=== PATIENT | female | born 1975 | race Caucasian/White ===

== ENCOUNTER 2016-05-21 08:47 | Emergency (ER) | payer OTHER ==
[~2016-05-21] VITALS: Ht 154.9 cm; Wt 64.0 kg
[~2016-05-21 08:47] MED LIST: NITR-5 PO; ONDA4TAB7 SL; PHEN-876 PO
[2016-05-21 08:49] VITALS: TEMP 36.9; Ht 154.9 cm; Wt 64.0 kg
[2016-05-21 09:28] LABS: BASO % 0.2 %; BASO ABS # 0.01 K/uL (0-0.2); COMPLETE YES; EOS % 1.1 %; HEMATOCRIT 35.4 % (37-47); IG% 0.2 %; LYMPH % 24.5 %; LYMPH ABS # 1.32 K/uL (1.2-3.4); MEAN CORPUSCULAR HEMOGLOBIN 25.9 pg (25-34); MEAN CORPUSCULAR HGB CONC 32.8 g/dl (32-36); MEAN PLATELET VOLUME 9.8 fL (7.4-10.4); MONO % 8.7 %; NEUT % 65.3 %; PLATELET COUNT 256 K/uL (130-400); RED BLOOD COUNT 4.48 M/uL (4.2-5.4); WHITE BLOOD COUNT 5.39 K/uL (4.8-10.8)
--- NOTE | 2016-05-21 09:35 | EMERGENCY ROOM VISIT NOTE ---
History Report prepared by Kervinibranjeet: Tank Bartlett Under the Supervision of: Dr. Vimal Adam M.D. First contact with patient: 08:57 Chief Complaint: BELLS PALSY SYMPTOMS Stated Complaint: FACIAL TINGLING/DROOPING, HEADACHE History of Present Illness The patient is a 40 year old female who presents to the Emergency Room with complaints of a resolved right-sided facial droop that she noticed this morning. The patient noticed the facial droop when she smiled. The patient has also felt numbness and tingling of her face and lips. The patient has felt tired and weak for the past two weeks. Two weeks ago, she had an episode where she laid down in her bathroom for an extended period of time because she was feeling so ill. She also had diarrhea and tingling of her extremities at that time. The patient intermittently experiences chest discomfort and rapid breathing. She denies feeling anxious. The patient denies any fevers, chills, urinary symptoms, or pain. The patient has a history of hypothyroidism. Her thyroid medication dose has not been changed recently. She had her thyroid levels checked in March, which were normal. The patient has a scheduled uterine ablation for next week. She experiences heavy menstrual bleeding which is causing her to be anemic. Her hemoglobin was 10.1 one week ago. Source of History: patient Onset: this morning Position: other (face, right side) Quality: other (facial droop) Timing: resolved Associated Symptoms: + diarrhea, + fatigue, + numbness, + weakness, No chills, No fevers, No urinary symptoms Review of Systems All systems have been listed, reviewed, and are negative other than those previously mentioned. Please see Additional Medical History Sheet. Past Medical & Surgical Medical Problems: (1) Asthma (2) Hypothyroidism Surgical Problems: (1) S/P tubal ligation Family History Cancer Diabetes mellitus Heart disease Social History Smoking Status: Never Smoker Occupation Status: employed Current/Historical Medications Scheduled Levothyroxine Sodium (Levothyroxine Sodium), 1 TAB PO DAILY Loratadine (Claritin), 10 MG PO DAILY Allergies Coded Allergies: Penicillins (Unverified Allergy, Mild, HIVES, 07/31/13) Amoxicillin (Unverified Allergy, Unknown, unknown, 05/21/16) Sulfamethoxazole w/Trimethoprim (Unverified Allergy, Unknown, unknown, 04/25) Uncoded Allergies: MILK LACTOSE INTOLERANT (Allergy, Unknown, 06/22/02) SEASONAL ALLERGIES, ADHESIVE TAPE (Allergy, Unknown, 06/22/02) Physical Exam Vital Signs Date Time Temp Pulse Resp B/P Pulse Ox O2 Delivery O2 Flow Rate FiO2 05/21/16 10:25 54 18 97/58 96 Room Air 05/21/16 08:49 36.9 70 18 127/83 100 Room Air Physical Exam GENERAL: Patient awake, alert, somewhat anxious, not currently hyperventilating , skin is slightly pale. Patient follows commands. Patient does not appear toxic. Patient is adequately hydrated and well-nourished. SKIN: No erythema, pallor, cyanosis or rash HEENT: Normal head, pupils equal, reactive to light and accommodation. Ears tube scars bilaterally. Oral cavity and posterior pharynx appear normal. Neck : Without adenopathy, no neck vein distention, carotids are strong and equal. Thyroid is not enlarged. LUNGS: Clear to auscultation. No wheezes, no rales, no rhonchi. HEART: No murmurs. No gallops. No rubs ABDOMEN: No masses, no rebound, no hepatomegaly or splenomegaly. EXTREMITIES: No signs of trauma. No pedal or pretibial edema. No calf or thigh tenderness. NEUROLOGIC: Cranial nerves II-XII within normal limits. No gross motor sensory function deficits. The patient has no facial dissymmetry. Medical Decision & Procedures ER Provider Diagnostic Interpretation: X ray results are stated below per my interpretation and the radiologist's interpretation. CHEST 2 VIEWS ROUTINE CLINICAL HISTORY: Weakness. COMPARISON STUDY: No previous studies for comparison. FINDINGS: Lung volumes are normal. Lungs are clear. There is no pneumothorax or pleural effusion. Cardiac size is normal. Mediastinal contours are normal. There is no evidence of pulmonary edema. IMPRESSION: No acute cardiopulmonary findings. Electronically signed by: Doroteo Kelly M.D. 05/21/2016 10:10 AM Dictated Date/Time: 05/21/2016 10:10 AM Laboratory Results 05/21/16 09:15 Red Blood Count 4.48, Mean Corpuscular Volume 79.0, Mean Corpuscular Hemoglobin 25.9, Mean Corpuscular Hemoglobin Concent 32.8, Mean Platelet Volume 9.8, Neutrophils (%) (Auto) 65.3, Lymphocytes (%) (Auto) 24.5, Monocytes (%) (Auto) 8.7, Eosinophils (%) (Auto) 1.1, Basophils (%) (Auto) 0.2, Neutrophils # (Auto) 3.52, Lymphocytes # (Auto) 1.32, Monocytes # (Auto) 0.47, Eosinophils # (Auto) 0.06, Basophils # (Auto) 0.01 05/21/16 09:15 Test 05/21/16 09:15 05/21/16 09:20 White Blood Count 5.39 K/uL (4.8-10.8) Red Blood Count 4.48 M/uL (4.2-5.4) Hemoglobin 11.6 g/dL (12.0-16.0) Hematocrit 35.4 % (37-47) Mean Corpuscular Volume 79.0 fL (80-100) Mean Corpuscular Hemoglobin 25.9 pg (25-34) Mean Corpuscular Hemoglobin Concent 32.8 g/dl (32-36) Platelet Count 256 K/uL (130-400) Mean Platelet Volume 9.8 fL (7.4-10.4) Neutrophils (%) (Auto) 65.3 % Lymphocytes (%) (Auto) 24.5 % Monocytes (%) (Auto) 8.7 % Eosinophils (%) (Auto) 1.1 % Basophils (%) (Auto) 0.2 % Neutrophils # (Auto) 3.52 K/uL (1.4-6.5) Lymphocytes # (Auto) 1.32 K/uL (1.2-3.4) Monocytes # (Auto) 0.47 K/uL (0.11-0.59) Eosinophils # (Auto) 0.06 K/uL (0-0.5) Basophils # (Auto) 0.01 K/uL (0-0.2) RDW Standard Deviation 40.9 fL (36.4-46.3) RDW Coefficient of Variation 14.2 % (11.5-14.5) Immature Granulocyte % (Auto) 0.2 % Immature Granulocyte # (Auto) 0.01 K/uL (0.00-0.02) Anion Gap 9.0 mmol/L (3-11) Est Creatinine Clear Calc Drug Dose 86.0 ml/min Estimated GFR () 115.3 Estimated GFR (Non- 99.5 BUN/Creatinine Ratio 14.4 (10-20) Calcium Level 8.6 mg/dl (8.5-10.1) Total Bilirubin 0.4 mg/dl (0.2-1) Aspartate Amino Transf (AST/SGOT) 17 U/L (15-37) Alanine Aminotransferase (ALT/SGPT) 25 U/L (12-78) Alkaline Phosphatase 50 U/L (45-117) Total Protein 7.0 gm/dl (6.4-8.2) Albumin 3.8 gm/dl (3.4-5.0) Globulin 3.2 gm/dl (2.5-4.0) Albumin/Globulin Ratio 1.2 (0.9-2) Thyroid Stimulating Hormone (TSH) 2.470 uIu/ml (0.300-4.500) Urine Color YELLOW Urine Appearance CLEAR (CLEAR) Urine pH 6.0 (4.5-7.5) Urine Specific [place] 1.003 (1.000-1.030) Urine Protein NEG (NEG) Urine Glucose (UA) NEG (NEG) Urine Ketones NEG (NEG) Urine Occult Blood NEG (NEG) Urine Nitrite NEG (NEG) Urine Bilirubin NEG (NEG) Urine Urobilinogen NEG (NEG) Urine Leukocyte Esterase TRACE (NEG) Urine WBC (Auto) 1-5 /hpf (0-5) Urine RBC (Auto) 0-4 /hpf (0-4) Urine Hyaline Casts (Auto) 1-5 /lpf (0-5) Urine Epithelial Cells (Auto) 10-20 /lpf (0-5) Urine Bacteria (Auto) NEG (NEG) Urine Test NEG (NEG) Laboratory results as stated above per my review. ECG Indication: weakness Rate (beats per minute): 56 Rhythm: sinus bradycardia Findings: no acute ischemic change, no ectopy ED Course 0857: Past medical records reviewed. The patient was evaluated in room B11b. A complete history and physical examination was performed. 1008: Updated the patient. Talked with her about the test results. 1030: Upon reevaluation, the patient appeared to have improvement of her symptoms. I discussed today's findings with her. She verbalized agreement of the treatment plan. She was discharged home. Medical Decision I considered multiple diagnoses, including Gomez's palsy, TIA, CVA, hyperventilation, anxiety, hyperthyroidism, metabolic disorder. Multiple labs, EKG and imaging were obtained. Please see above. Clinically the patient does not have Gomez's palsy or a TIA/CVA. I find no neurologic deficits. The patient describes tingling in her extremities. She denies anxiety and hyperventilation but most likely this is the cause of her symptoms. I discussed this with her and hopefully reassured her. In the meantime, I believe that she is safe to return home. She is scheduled to have a uterine ablation within the next 10 days. Her hemoglobin is actually slightly higher than it was previously. Patient's TSH was also checked and is within therapeutic range. Impression Primary Impression: Hyperventilation syndrome Additional Impressions: Anxiety Hypokalemia Anemia Scribe Attestation The scribe's documentation has been prepared under my direction and personally reviewed by me in its entirety. I confirm that the note above accurately reflects all work, treatment, procedures, and medical decision making performed by me. Departure Information Dispostion Home / Self-Care Referrals Collin Ho M.D.([place]) (PCP) Forms HOME CARE DOCUMENTATION FORM, IMPORTANT VISIT INFORMATION Patient Instructions A Signature Page, My [facility] Additional Instructions Follow-up with your family physician within the next 2 weeks. Follow-up with gynecology as scheduled. Continue current medications as prescribed. Increase potassium in your diet. Problem Qualifiers Additional Impressions: Anemia Iron deficiency anemia type: chronic blood loss
[2016-05-21] MEDS ORDERED: CLR10 PO (09:36)
[2016-05-21] MEDS ORDERED: LEVO50TA6 PO (09:36)
[2016-05-21 09:45] LABS: BUN/CREATININE RATIO 14.4 (10-20); CALCIUM 8.6 mg/dl (8.5-10.1); CREATININE 0.76 mg/dl (0.60-1.20); POTASSIUM 3.4 mmol/L (3.5-5.1)
[2016-05-21 09:54] LABS: URINE APPEARANCE CLEAR (CLEAR); URINE BILIRUBIN NEG (NEG); URINE COLOR YELLOW; URINE NITRITE NEG (NEG); URINE SPECIFIC GRAVITY 1.003 (1.000-1.030); UROBILINOGEN NEG (NEG); ZZUR CULT IF INDIC CLEAN CATCH NO
[2016-05-21 09:56] LABS: ALB/GLOB RATIO 1.2 (0.9-2); THYROID STIMULATING HORMONE 2.47 uIu/ml (0.300-4.500)
[2016-05-21 09:59] LABS: MANUAL MICROSCOPIC REQUIRED? NO; REVIEW REQ? NO
--- NOTE | 2016-05-21 10:12 | DIAGNOSTIC IMAGING REPORT ---
CHEST 2 VIEWS ROUTINE CLINICAL HISTORY: Weakness. COMPARISON STUDY: No previous studies for comparison. FINDINGS: Lung volumes are normal. Lungs are clear. There is no pneumothorax or pleural effusion. Cardiac size is normal. Mediastinal contours are normal. There is no evidence of pulmonary edema. IMPRESSION: No acute cardiopulmonary findings. Electronically signed by: Doroteo Kelly M.D. 05/21/2016 10:10 AM Dictated Date/Time: 05/21/2016 10:10 AM
[2016-05-21 10:25] VITALS: BP 97/58; PULSE 54; O2SAT 96
== END 2016-05-21 10:43 | disposition home or self-care (01) ==
LOC: C.EDB 08:48
DX: F45.8 Other somatoform disorders (principal); F41.9 Anxiety disorder, unspecified; E87.6 Hypokalemia; D64.9 Anemia, unspecified; J45.909 Unspecified asthma, uncomplicated; E03.9 Hypothyroidism, unspecified; Z98.51 Tubal ligation status; Z88.0 Allergy status to penicillin; Z88.1 Allergy status to other antibiotic agents; Z88.2 Allergy status to sulfonamides; Z91.011 Allergy to milk products; Z82.49 Family history of ischemic heart disease and other diseases of the circulatory system; Z80.9 Family history of malignant neoplasm, unspecified; Z83.3 Family history of diabetes mellitus

== ENCOUNTER 2016-10-13 13:40 | Emergency (ER) | payer OTHER ==
[~2016-10-13] VITALS: Ht 154.9 cm; Wt 69.1 kg
[~2016-10-13 13:40] MED LIST changes: +CLR10 PO; +LEVO50TA6 PO; -NITR-5 PO; -ONDA4TAB7 SL; -PHEN-876 PO
[2016-10-13 13:42] VITALS: TEMP 36.7; Ht 154.9 cm; Wt 69.1 kg
--- NOTE | 2016-10-13 14:56 | DIAGNOSTIC IMAGING REPORT ---
MAXILLOFACIAL CT CT DOSE: 420.82 mGycm HISTORY: Trauma. Pain. swelling/pain left zygomatic process s/p trauma TECHNIQUE: Multiaxial CT images of the maxillofacial region were performed and reformatted in the coronal plane without the use of contrast. COMPARISON: None. FINDINGS: The visualized cervical spine, skull base, pterygoid plates, nasal bones, lamina papyracea, orbital floors, mandible, and zygomatic arches are intact. No fractures. The orbits are unremarkable. IMPRESSION: No fractures within the maxillofacial region. Electronically signed by: Nima Bess M.D. 10/13/2016 2:54 PM Dictated Date/Time: 10/13/2016 2:52 PM
--- NOTE | 2016-10-13 15:12 | EMERGENCY ROOM VISIT NOTE ---
ED Visit Note First contact with patient: 14:04 CHIEF COMPLAINT: Facial laceration, pain since getting hit by hockey stick at work. 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 Pt. is now complaining of a laceration to the left lateral orbit as well as pain and swelling inferiorly to the left orbit. There was no loss of consciousness, vomiting, or unusual behavior afterwards. Denies neck pain. No headache, nausea, or vomiting. Pt. does report slight blurry vision, but wears contact lenses and states she believes there to be a small tear in the lens. Upon removal of the lens, vision and eye discomfort improved. There is minimal, controlled bleeding. The patient rates the pain as sharp and 7/10. The patient 's tetanus shot is up to date. REVIEW OF SYSTEMS: A 6 system review of systems was completed with positives and pertinent negatives listed in the HPI. ALLERGIES: Amoxicillin, Bactrim, penicillin MEDICATIONS: levothyroxine PMH: Hypothyroidism, recent uterine ablation SOCIAL HISTORY: pt. lives locally with her family. She denies alcohol, tobacco , drug use. PHYSICAL EXAM: Vital Signs: Reviewed Nurse's notes, vital signs stable. GENERAL : 40 year old female, in no acute distress, well-developed, well-nourished. NEURO: The patient is alert and oriented to person place and time. No focal neurological defects. EYES: Pupils are round, equal, and react to light. EOMI. EARS: No hemotympanum. NECK: Supple. No cervical spine tenderness. FACE: facial bone tenderness over left zygomatic process, no mandibular tenderness. The mouth can open fully. The teeth are well aligned. No loose or chipped teeth. SKIN: There is a 0.5 cm laceration lateral to the left orbit. The edges are minimally gape apart with traction, but lay well without traction. There is no active bleeding and no foreign material in the wound. There are no deep structures present. Capillary refill less than two seconds. Normal sensation to light and sharp touch. EMERGENCY DEPARTMENT COURSE: I examined the patient. Verbal consent was obtained to perform the procedure. The laceration on left lateral frontal process was cleaned with betadine and sterile saline and there was no bleeding. The edges of the laceration were approximated and secured with 3 layers of Dermabond glue with good wound approximation. The patient tolerated the procedure well. CT scan was performed and read by myself and radiology. Findings show: FINDINGS: The visualized cervical spine, skull base, pterygoid plates, nasal bones, lamina papyracea, orbital floors, mandible, and zygomatic arches are intact. No fractures. The orbits are unremarkable. IMPRESSION: No fractures within the maxillofacial region. The patient was discharged home in stable condition. DIAGNOSIS: Facial laceration, facial contusion DIFFERENTIAL DIAGNOSIS: Orbital fracture, zygomatic arch fractur DISCHARGE INSTRUCTIONS: Read DermaBond handout. Ice for swelling and pain. Ibuprofen 600 mg and Tylenol 1000 mg every 6 hrs for pain. Return for any signs of infection (increasing redness, swelling, drainage, fever). Keep covered when in sun until fully healed then SPF 50 or higher for one year. Vitamin E oil if desired two weeks after fully healed for reduction of scar. Follow-up with the mirror painter in 3-5 days, and primary care physician at the same time. Return to the emergency department for further evaluation if you experienced dizziness, changes in vision, headache, nausea, confusion, altered mental status, or loss consciousness. Problem List Medical Problems: (1) Asthma Status: Chronic (2) Hypothyroidism Status: Chronic Surgical Problems: (1) S/P tubal ligation Status: Resolved Current/Historical Medications Scheduled Levothyroxine Sodium (Levothyroxine Sodium), 1 TAB PO DAILY Loratadine (Claritin), 10 MG PO DAILY Allergies Coded Allergies: Penicillins (Unverified Allergy, Mild, HIVES, 10/13/16) Amoxicillin (Unverified Allergy, Unknown, unknown, 10/13/16) Sulfamethoxazole w/Trimethoprim (Unverified Allergy, Unknown, unknown, 10/13) Uncoded Allergies: MILK LACTOSE INTOLERANT (Allergy, Unknown, 06/22/02) SEASONAL ALLERGIES, ADHESIVE TAPE (Allergy, Unknown, 06/22/02) Vital Signs Date Time Temp Pulse Resp B/P (MAP) Pulse Ox O2 Delivery O2 Flow Rate FiO2 10/13/16 15:40 76 18 102/75 97 Room Air 10/13/16 13:42 36.7 87 16 113/77 98 Room Air Departure Information Impression Primary Impression: Facial laceration Additional Impression: Facial contusion Dispostion Home / Self-Care Condition GOOD Referrals Collin Ho M.D.([facility]) (PCP) Patient Instructions ED Laceration Facial Skin Glue, [facility] Additional Instructions Read DermaBond handout. Ice for swelling and pain. Ibuprofen 600 mg and/or Tylenol 1000 mg every 6 hrs for pain. Return for any signs of infection ( increasing redness, swelling, drainage, fever). Keep covered when in sun until fully healed then SPF 50 or higher for one year. Vitamin E oil if desired two weeks after fully healed for reduction of scar. Recommended patient remove contact lens due to swelling and irritation. Follow-up with the mirror painter in 3-5 days, and primary care physician at the same time. Return to the emergency department for further evaluation if you experienced dizziness, changes in vision, headache, nausea, confusion, altered mental status, or loss consciousness. Problem Qualifiers Primary Impression: Facial laceration Encounter type: initial encounter Qualified Codes: S01.81XA - Laceration without foreign body of other part of head, initial encounter Additional Impression: Facial contusion Encounter type: initial encounter Qualified Codes: S00.83XA - Contusion of other part of head, initial encounter
[2016-10-13 15:40] VITALS: BP 102/75; PULSE 76; O2SAT 97
== END 2016-10-13 15:40 | disposition home or self-care (01) ==
LOC: C.EDB 13:42 → C.EDD 15:40
DX: S01.81XA Laceration without foreign body of other part of head, initial encounter (principal); S00.83XA Contusion of other part of head, initial encounter; W22.8XXA Striking against or struck by other objects, initial encounter; Y93.65 Activity, lacrosse and field hockey; E03.9 Hypothyroidism, unspecified; J45.909 Unspecified asthma, uncomplicated; Z98.51 Tubal ligation status; Z79.899 Other long term (current) drug therapy; Z88.0 Allergy status to penicillin; Z88.1 Allergy status to other antibiotic agents; Z88.2 Allergy status to sulfonamides; Z88.8 Allergy status to other drugs, medicaments and biological substances